=== PATIENT | female | born 1945 | race Asian ===

== ENCOUNTER 2018-10-05 14:54 | Inpatient (IN) | payer MEDICARE, OTHER ==
[~2018-10-05] VITALS: Ht 157.5 cm; Wt 78.2 kg
[2018-10-06 14:48] VITALS: BP 160/75
== END 2018-10-06 18:15 | disposition home or self-care (01) | DRG 683 ==
LOC: ED 18:30 → EDIP 18:35 → ED 19:17 → 3NE 19:58
PROVIDERS: ADMIT Internal Medicine; ATTEND Internal Medicine
DX: N17.9 Acute kidney failure, unspecified (principal); R65.10 Systemic inflammatory response syndrome (SIRS) of non-infectious origin without acute organ dysfunction; I12.9 Hypertensive chronic kidney disease with stage 1 through stage 4 chronic kidney disease, or unspecified chronic kidney disease; A08.4 Viral intestinal infection, unspecified; E11.22 Type 2 diabetes mellitus with diabetic chronic kidney disease; E87.5 Hyperkalemia; N18.4 Chronic kidney disease, stage 4 (severe)
CPT/HCPCS: 36415; 71045; 74021; 74176; 80048; 80076; 81001; 82040; 82962; 83605; 83735; 84145; 84443; 84484; 85025; 87040; 87086; 93005; 99285; G0378; J0696; J1815; J7030